=== PATIENT | female | born 1955 ===

== ENCOUNTER 2017-03-18 07:42 | Day surgery (SDC) | payer OTHER ==
[2017-03-18 09:03] VITALS: TEMP 98.6
[2017-03-18] MEDS ORDERED: Propofol 10 mg/ml Inj (20 ML) ONE (09:13)
--- NOTE | 2017-03-18 09:16 | CP.SDSHP ---
Same Day Surgery H & P - History Proposed Procedure: COLONSCOPY Pre-Op Diagnosis: SEE NOTES - Previous Medical/Surgical History Cardiac: Hypertension Endocrine/Metabolic: Other Neuro: Other Misc: Other Pain: 4.Moderate Pain Previous Surgical History: HX. OF COLON POLYPS - Allergies Allergies: Allergies No Known Allergies Allergy (Verified 03/18/17 08:48) - Physical Exam General Appearance: N Vital Signs: Vital Signs 03/18/17 08:25 Temperature 98.6 F Pulse Rate 72 Respiratory 18 Rate Blood Pressure 121/66 O2 Sat by Pulse 98 Oximetry Mental Status: Alert & Oriented x3 Neuro: Other Heart: Other Lungs: WNL GI: Other - {Optional Preform as Required} Breast: WNL Rectal: Other Integument: WNL : WNL Ortho: Other ENT: WNL - Impression Pt. Evaluated Today:Candidate for Anesthesia & Procedure: Yes - Date & Time Time: Short Stay Discharge - Short Stay Discharge Admitting Diagnosis/Reason for Visit: DIARRHEA Disposition: HOME/ ROUTINE
[2017-03-18] MEDS ORDERED: Lidocaine Hydrochloride 5 ML INJ ONE (09:17)
[2017-03-18] MEDS ORDERED: Lactated Ringer's 500 ML IV SCH (09:30)
[2017-03-18] MEDS ORDERED: Belladonna-Phenobarbital PO ONE (10:00)
[2017-03-18] MEDS ORDERED: Sodium Chloride 0.9% 1,000 ML IV SCH (10:45)
[2017-03-18 11:35] VITALS: BP 109/47; PULSE 60; RESP 15; O2SAT 97
== END 2017-03-18 11:14 | disposition home or self-care (01) ==
LOC: C.ENDO 07:42
PROVIDERS: ATTEND Specialist
DX: K57.30 Diverticulosis of large intestine without perforation or abscess without bleeding (principal); R19.7 Diarrhea, unspecified; K63.89 Other specified diseases of intestine; K64.4 Residual hemorrhoidal skin tags; K64.8 Other hemorrhoids; I10 Essential (primary) hypertension
CPT/HCPCS: 45380; 87045; 87177; 87209; 87230; 88305; 89055; J2704; J3010; J7040; J7120

== ENCOUNTER 2017-04-01 06:22 | Day surgery (SDC) | payer OTHER ==
[2017-04-01 06:50] VITALS: BMI 22.9
[2017-04-01] MEDS ORDERED: Propofol 10 mg/ml Inj (20 ML) ONE (08:01)
--- NOTE | 2017-04-01 08:03 | CP.SDSHP ---
Same Day Surgery H & P - History Proposed Procedure: EGD Pre-Op Diagnosis: SEE NOTES - Previous Medical/Surgical History Cardiac: Hypertension Endocrine/Metabolic: Other Neuro: Headaches, Backaches Misc: Other Pain: 4.Moderate Pain - Allergies Allergies: Allergies No Known Allergies Allergy (Verified 04/01/17 06:49) - Physical Exam General Appearance: N Vital Signs: Vital Signs 04/01/17 06:45 Temperature 97.7 F Pulse Rate 68 Respiratory 19 Rate Blood Pressure 122/74 O2 Sat by Pulse 98 Oximetry Mental Status: Alert & Oriented x3 Neuro: WNL Heart: Other Lungs: WNL GI: Other - {Optional Preform as Required} Breast: WNL Abdomen: Other Rectal: Other Integument: WNL : WNL Ortho: Other ENT: WNL - Impression Pt. Evaluated Today:Candidate for Anesthesia & Procedure: Yes - Date & Time Time: 08:03 Short Stay Discharge - Short Stay Discharge Admitting Diagnosis/Reason for Visit: DYSPEPSIA Disposition: HOME/ ROUTINE
[2017-04-01] MEDS ORDERED: Lactated Ringer's 500 ML IV SCH (08:15)
[2017-04-01 08:30] VITALS: TEMP 97
[2017-04-01] MEDS ORDERED: Belladonna-Phenobarbital PO ONE (08:30)
[2017-04-01 08:44] VITALS: O2SAT 100
[2017-04-01 09:20] VITALS: BP 127/58; PULSE 60; RESP 18
== END 2017-04-01 09:20 | disposition home or self-care (01) ==
LOC: C.ENDO 06:22
PROVIDERS: ATTEND Specialist
DX: K29.50 Unspecified chronic gastritis without bleeding (principal); K44.9 Diaphragmatic hernia without obstruction or gangrene
CPT/HCPCS: 43239; 88305; 88342; J2704; J7120